=== PATIENT | male | born 1945 | race African-American/Black ===

== ENCOUNTER 2018-10-03 06:30 | Emergency (ER) | payer MEDICARE, MEDICAID ==
[2018-10-03] MEDS ORDERED: METHYLPREDNISOLONE INJ 125 MG/2 ML SDV IV ONE (07:47)
[2018-10-03] MEDS ORDERED: DIPHENHYDRAMINE HCL 50 MG/ML VIAL IV ONE (07:48)
[2018-10-03] MEDS ORDERED: FAMOTIDINE INJ/PF 20 MG/2 ML SDV IV ONE (07:48)
[2018-10-03 07:58] LABS: ABSOLUTE EOSINOPHILS # (AUTO) 0.2 10^3/uL (0.0-0.6); ABSOLUTE LYMPHOCYTES (AUTO) 1.4 10^3/uL (0.5-4.7); ABSOLUTE MONOCYTES (AUTO) 0.6 10^3/uL (0.1-1.4); ABSOLUTE NEUT (AUTO) 4.1 10^3/uL (1.7-8.2); BASOPHILS % (AUTO) 0.8 % (0-2); HEMATOCRIT 35.2 % (37.9-51.0); HEMOGLOBIN 11.4 g/dL (13.5-17.0); LYMPHOCYTES % (AUTO) 22.1 % (13-45); MEAN CORPUSCULAR HEMOGLOBIN 24.7 pg (27.0-33.4); MEAN CORPUSCULAR HGB CONC 32.3 g/dL (32.0-36.0); MEAN CORPUSCULAR VOLUME 76 fl (80-97); PLATELET COUNT 225 10^3/uL (150-450); RED BLOOD COUNT 4.61 10^6/uL (4.35-5.55); SEGMENTED NEUTROPHILS % (AUTO) 64.1 % (42-78); TOTAL CELLS COUNTED % (AUTO) 100 %; WHITE BLOOD COUNT 6.3 10^3/uL (4.0-10.5)
[2018-10-03] MEDS ORDERED: NORMAL SALINE 500 ML IV ONE (08:11)
[2018-10-03 08:24] LABS: ALANINE AMINOTRANSFERASE 16 U/L (21-72); ALBUMIN 4.2 g/dL (3.5-5.0); ALKALINE PHOSPHATASE 87 U/L (38-126); ANION GAP 6 (5-19); ASPARTATE AMINO TRANSFERASE 40 U/L (17-59); BILIRUBIN,DIRECT 0.3 mg/dL (0.0-0.4); BILIRUBIN,TOTAL 1.2 mg/dL (0.2-1.3); BLOOD UREA NITROGEN 21 mg/dL (7-20); CALCIUM 9.4 mg/dL (8.4-10.2); CARBON DIOXIDE 30 mmol/L (22-30); CHLORIDE 105 mmol/L (98-107); GLUCOSE 98 mg/dL (75-110); POTASSIUM 4.6 mmol/L (3.6-5.0); SODIUM 140.5 mmol/L (137-145); TOTAL PROTEIN 8.3 g/dL (6.3-8.2)
--- NOTE | 2018-10-03 08:33 | ER Document Report ---
ED General - General Chief Complaint: Bee Sting Stated Complaint: SWOLLEN LIP Time Seen by Provider: 10/03/18 07:33 Primary Care Provider: SONYA BOWLING MD [Primary Care Provider] - Follow up as needed TRAVEL OUTSIDE OF THE [place] IN LAST 30 DAYS: No - HPI Notes: Patient is a 72-year-old male who presents to the emergency department for evaluation. He states he believes he was stung by a bee while eating yesterday evening. He states he thought was between 5 and 6 PM. He states he put his fork to his mouth and felt the sting. He has had pain and swelling since then. He states his whole face was swollen. It seems to have not improved significantly. He is tried Benadryl without any significant relief. He has been stung in the past, never had an anaphylactic reaction. He denies any swelling of his tongue, difficulty breathing or swallowing. No other medication changes. Patient also notes that he has been feeling dizzy. He feels lightheaded when he changes position quickly. He denies any associated chest pain or difficulty breathing. - Related Data Allergies/Adverse Reactions: No Known Allergies Allergy (Verified 06/23/15 17:40) Past Medical History - General Information source: Patient - Social History Smoking Status: Never Smoker Drug Abuse: None Family History: Reviewed & Not Pertinent - Past Medical History Cardiac Medical History: Reports: Hx Congestive Heart Failure, Hx Heart Attack, Hx Hypercholesterolemia, Hx Hypertension Past Surgical History: Reports: Hx Cardiac Surgery - pacemaker - Immunizations Hx Diphtheria, Pertussis, Tetanus Vaccination: No Review of Systems - Review of Systems Constitutional: No symptoms reported EENT: See HPI Cardiovascular: No symptoms reported Respiratory: No symptoms reported Gastrointestinal: No symptoms reported Genitourinary: No symptoms reported Musculoskeletal: No symptoms reported Skin: No symptoms reported Neurological/Psychological: No symptoms reported Physical Exam - Vital signs Vitals: Temp Pulse Resp BP Pulse Ox 97.9 F 67 18 137/75 H 99 10/03/18 06:33 10/03/18 06:33 10/03/18 06:33 10/03/18 06:33 10/03/18 06:33 - Notes Notes: Vital signs reviewed, please refer to chart. Head is normocephalic, atraumatic. Pupils equal round, reactive to light. Patient has a moderate amount of edema noted to the lower lip, soft tissue over the chin and mandible. He has absolutely no tongue edema. No posterior pharyngeal edema. Handling secretions without difficulty. Neck is supple without meningismus. Heart is regular rate and rhythm. Lungs are clear to auscultation bilaterally. Abdomen is soft, nontender, normoactive bowel sounds throughout. Extremities without cyanosis, clubbing. Posterior calves are nontender. Peripheral pulses are equal. Skin is warm and dry. Patient is awake, alert, oriented x3. Cranial nerves II - XII are grossly intact without focal neurological deficits. Strength is plus 5 out of 5 bilateral lower extremities. Sensation is intact. Reflexes symmetrical. Intact [id number], rapid alternating movements, [id number]. Course - Re-evaluation Re-evalutation: 10/03/18 08:37 Patient presents emergency department for evaluation. I did review this patient's chart. Initially my plan was not to order any sort of laboratory investigations. I did note through his history, however, that his last hemoglobin was under 8 back in 2016. Given his dizziness, I did go ahead and check labS. Orthostatic vital signs were obtained. The patient did have an increase in heart rate of 16 and a drop in blood pressure of 19. Although this is not entirely orthostatic, I do feel inclined to treat him with some fluids. Only 500 cc were given given his history of CHF as well as Lasix. Patient was given an ice pack, Solu-Medrol, Pepcid, Benadryl. We will continue to follow. 10/03/18 10:18 Patient's dizziness improved. Swelling continue to be present. He does not show any signs of airway compromise. He is given a prescription for prednisone. He is told to follow-up with his primary care physician this week. He is to return to the ED with worsening or new concerning symptoms of any sort. - Vital Signs Vital signs: Temp Pulse Resp BP Pulse Ox 97.4 F 63 15 164/74 H 99 10/03/18 10:12 10/03/18 10:12 10/03/18 10:12 10/03/18 10:12 10/03/18 06:33 - Laboratory Result Diagrams: 10/03/18 07:45 10/03/18 07:45 Laboratory results interpreted by me: 10/03/18 10/03/18 07:45 07:45 Hgb 11.4 L Hct 35.2 L MCV 76 L MCH 24.7 L BUN 21 H ALT 16 L Total Protein 8.3 H Discharge - Discharge Clinical Impression: Orthostasis Bee sting reaction Qualifiers: Encounter type: initial encounter Injury intent: accidental or unintentional Qualified Code(s): T63.441A - Toxic effect of venom of bees, accidental (unintentional), initial encounter Condition: Stable Disposition: HOME, SELF-CARE Instructions: Insect Sting ([facility]), Swollen Insect Bite or Sting ([facility]) Additional Instructions: Ice to the swollen area. Try to keep your head elevated. Follow-up with your primary care doctor this week. Take medication as prescribed. Return to the emergency department with worsening or new concerning symptoms. Prescriptions: Prednisone [Deltasone 20 mg Tablet] See Protocol PO DAILY 5 Days #20 tablet Referrals: SONYA BOWLING MD [Primary Care Provider] - Follow up as needed
[2018-10-03 10:13] VITALS: BP 164/74
== END 2018-10-03 10:13 | disposition home or self-care (01) ==
LOC: ER 06:30
DX: T63.441A Toxic effect of venom of bees, accidental (unintentional), initial encounter (principal); R42 Dizziness and giddiness; I11.9 Hypertensive heart disease without heart failure; Z79.899 Other long term (current) drug therapy; I25.2 Old myocardial infarction; Z95.0 Presence of cardiac pacemaker
CPT/HCPCS: 99283; 96374; 96375; 36415; 85025; 80053; J1200; J2930; J7040; S0028